=== PATIENT | female | born 1970 | race Caucasian/White ===

== ENCOUNTER 2018-07-27 10:12 | Emergency (ER) | payer BC, MEDICAID ==
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
== END 2018-07-27 13:06 | disposition home or self-care (01) ==
LOC: ER 10:12
DX: M54.2 Cervicalgia (principal); Z98.890 Other specified postprocedural states
CPT/HCPCS: 72125-TC; Z7502